=== PATIENT | male | born 1965 | race Two or more races ===

== ENCOUNTER 2019-01-04 22:02 | Emergency (ER) | payer SELFPAY ==
[~2019-01-04] VITALS: Ht 185.4 cm; Wt 100.0 kg
[2019-01-04 23:23] LABS: CHLORIDE 92 mEq/L (98-107)
[2019-01-04 23:27] LABS: EOSINOPHILS % 1.9 % (0.0-5.0); ETHANOL BLOOD < 10 mg/dL; HEMATOCRIT. 37.6 % (42.0-52.0); HEMOGLOBIN. 13.5 g/dL (14.0-18.0); LYMPHOCYTES % 19.1 % (20.0-50.0); MEAN CORPUSCULAR HEMOGLOBIN 27.7 pg (28.0-32.0); MEAN PLATELET VOLUME 6.5 fl (7.4-10.4); MONOCYTES % 7.3 % (2.0-8.0); NEUTROPHILS % 70.7 % (40.0-76.0); PLATELET 373 x1000/uL (130-400); RED BLOOD CELL COUNT 4.87 mill/uL (4.7-6.1); RED CELL DISTRIBUTION WIDTH 14.6 % (11.6-14.6)
[2019-01-04 23:32] LABS: T4 FREE 1.21 ng/dL (0.76-1.46)
[2019-01-04] MEDS ORDERED: POTASSIUM CHLORIDE 20MEQ TABLET SR PO ONE (23:45)
[2019-01-05 03:25] VITALS: BP 126/81
== END 2019-01-05 03:30 | disposition home or self-care (01) ==
LOC: ER 22:02
DX: E87.6 Hypokalemia (principal); R07.89 Other chest pain; F41.9 Anxiety disorder, unspecified; R00.2 Palpitations; R06.4 Hyperventilation; Z63.4 Disappearance and death of family member
CPT/HCPCS: 36415; 71045; 80053; 80320; 83880; 84439; 84443; 84484; 85025; 93005; 99284; Z7610; G0480